=== PATIENT | female | born 1955 | race Caucasian/White ===

== ENCOUNTER → 2016-07-31 | Outpatient (CLI) | payer OTHER ==
[~2016-07-31] MED LIST: BENA25TA4 PO; BENZ1TA PO; COGENTIN PO; COZA50TA PO; FLUO10CA8 PO; FLUP25TA PO; FLUP25VL IM; FLUP5TA PO; FURO40TA2 PO; GABA600T PO; GABA800T PO; LOSA50TA20 PO; LOSA50TA21 PO; METO25TAB PO; NEUR600T PO; NEUR800T PO; PROLIXIN PO; TRAZ50TA4 PO
[2016-07-31 10:46] LABS: ALBUMIN 3.5 GM/DL (3.2-5.2); ALBUMIN/GLOBULIN RATIO 1.09 (1.00-1.93); BILIRUBIN,TOTAL 0.3 MG/DL (0.2-1.0); CALCIUM LEVEL 8.4 MG/DL (8.8-10.2); CREATININE FOR GFR 1.03 MG/DL (0.55-1.02); GLOMERULAR FILTRATION RATE 57.6 (>45); POTASSIUM SERUM 4.2 MEQ/L (3.5-5.1); TOTAL PROTEIN 6.7 GM/DL (6.4-8.2)
== END ==
LOC: M LAB 09:44
PROVIDERS: ATTEND Nurse Practitioner Family
DX: E55.9 Vitamin D deficiency, unspecified (principal); I10 Essential (primary) hypertension; Z13.220 Encounter for screening for lipoid disorders

== ENCOUNTER → 2016-09-16 | Outpatient (REF) | payer OTHER ==
[~2016-09-16] MED LIST changes: +BENZ-52 PO; -BENZ1TA PO; -LOSA50TA21 PO; +LOSA50TA5 PO; +TRAZ50TA11 PO; -TRAZ50TA4 PO
== END ==
LOC: M LAB REF 11:38
PROVIDERS: ATTEND Nurse Practitioner Family
DX: R19.7 Diarrhea, unspecified (principal)

== ENCOUNTER → 2017-03-19 | Outpatient (REF) | payer OTHER ==
[2017-03-19 20:35] LABS: ALBUMIN 3.6 GM/DL (3.2-5.2); ALBUMIN/GLOBULIN RATIO 1.16 (1.00-1.93); ALKALINE PHOSPHATASE 100 U/L (45-117); ALT/SGPT 21 U/L (12-78); ANION GAP 6 MEQ/L (8-16); AST/SGOT 19 U/L (7-37); BILIRUBIN,TOTAL 0.2 MG/DL (0.2-1.0); BLOOD UREA NITROGEN 15 MG/DL (7-18); CALCIUM LEVEL 8.6 MG/DL (8.8-10.2); CARBON DIOXIDE LEVEL 30 MEQ/L (21-32); CHLORIDE LEVEL 104 MEQ/L (98-107); CREATININE FOR GFR 1.01 MG/DL (0.55-1.02); GLOMERULAR FILTRATION RATE 58.9 (>45); GLUCOSE, FASTING 126 MG/DL (80-110); POTASSIUM SERUM 3.9 MEQ/L (3.5-5.1); SODIUM LEVEL 140 MEQ/L (136-145); TOTAL PROTEIN 6.7 GM/DL (6.4-8.2)
[2017-03-19 20:55] LABS: TOTAL 25(OH) VITAMIN D 38.9 NG/ML (30.0-100.0)
== END ==
LOC: M LAB REF 18:46
DX: E66.09 Other obesity due to excess calories (principal); Z72.0 Tobacco use; E55.9 Vitamin D deficiency, unspecified; F31.9 Bipolar disorder, unspecified; I10 Essential (primary) hypertension

== ENCOUNTER → 2017-04-23 | Outpatient (CLI) | payer OTHER | LOC: M RAD 08:44 | DX: Z12.31 Encounter for screening mammogram for malignant neoplasm of breast (principal) | CPT/HCPCS: 77067 ==

== ENCOUNTER → 2017-07-13 | Outpatient (REF) | payer OTHER ==
[2017-07-13 13:15] LABS: HEMATOCRIT 40.3 % (36.0-47.0); HEMOGLOBIN 13.5 g/dl (12.0-15.5); MEAN CORPUSCULAR HEMOGLOBIN 31.5 pg (27.0-33.0); MEAN CORPUSCULAR HGB CONC 33.5 g/dl (32.0-36.5); MEAN CORPUSCULAR VOLUME 94.2 fl (80.0-96.0); PLATELET COUNT, AUTOMATED 279 10^3/uL (150-450); RED BLOOD COUNT 4.28 10^6/uL (4.00-5.40); RED CELL DISTRIBUTION WIDTH 14.3 % (11.5-14.5); WHITE BLOOD COUNT 8.3 10^3/uL (4.0-10.0)
[2017-07-13 13:50] LABS: CHOLESTEROL LEVEL 124 MG/DL (<200); CHOLESTEROL RISK RATIO 2.883 (<5); HDL CHOLESTEROL 43 MG/DL (>40); LDL CHOLESTEROL 61.4 MG/DL (<100); NON-HDL-C 81 MG/DL; THYROID STIMULATING HORMONE 0.923 uIU/ML (0.358-3.740); TRIGLYCERIDES LEVEL 98 MG/DL (<150)
[2017-07-13 14:46] LABS: ESTIMATED AVERAGE GLUCOSE 120 MG/DL (60-110); HEMOGLOBIN A1c 5.8 %
== END ==
LOC: M LAB REF 12:07
DX: Z51.81 Encounter for therapeutic drug level monitoring (principal); Z79.899 Other long term (current) drug therapy

== ENCOUNTER → 2017-07-13 | Outpatient (REF) | payer OTHER ==
[2017-07-13 13:50] LABS: CHOLESTEROL LEVEL 131 MG/DL (<200); CHOLESTEROL RISK RATIO 2.847 (<5); HDL CHOLESTEROL 46 MG/DL (>40); LDL CHOLESTEROL 65.8 MG/DL (<100); NON-HDL-C 85 MG/DL; TRIGLYCERIDES LEVEL 96 MG/DL (<150)
[2017-07-13 20:17] LABS: ESTIMATED AVERAGE GLUCOSE 120 MG/DL (60-110); HEMOGLOBIN A1c 5.8 %
== END ==
LOC: M LAB REF 12:05
DX: I10 Essential (primary) hypertension (principal)

== ENCOUNTER → 2017-12-01 | Outpatient (REF) | payer OTHER, MEDICAID ==
[2017-12-01 15:10] LABS: ALBUMIN 3.2 GM/DL (3.2-5.2); ALBUMIN/GLOBULIN RATIO 0.94 (1.00-1.93); ALKALINE PHOSPHATASE 81 U/L (45-117); ALT/SGPT 18 U/L (12-78); ANION GAP 10 MEQ/L (8-16); AST/SGOT 19 U/L (7-37); BILIRUBIN,TOTAL 0.2 MG/DL (0.2-1.0); BLOOD UREA NITROGEN 19 MG/DL (7-18); CALCIUM LEVEL 8.8 MG/DL (8.8-10.2); CARBON DIOXIDE LEVEL 28 MEQ/L (21-32); CHLORIDE LEVEL 101 MEQ/L (98-107); CREATININE FOR GFR 1.16 MG/DL (0.55-1.30); GLOMERULAR FILTRATION RATE 50.1 (>45); GLUCOSE, FASTING 142 MG/DL (70-100); SODIUM LEVEL 139 MEQ/L (136-145); TOTAL PROTEIN 6.6 GM/DL (6.4-8.2)
== END ==
LOC: M LAB REF 14:02
DX: I10 Essential (primary) hypertension (principal)

== ENCOUNTER → 2018-07-02 | Outpatient (CLI) | payer MEDICAID, OTHER ==
[~2018-07-02] MED LIST changes: -GABA600T PO; +GABA600T4 PO; -GABA800T PO; +GABA800T4 PO; -LOSA50TA20 PO; +LOSA50TA88 PO; +METO-346 PO; -METO25TAB PO; +TRAZ-160 PO; -TRAZ50TA11 PO
--- NOTE | 2018-07-02 09:27 | REPMRS ---
Patient History The patient states she has not had a clinical breast exam in over a year. Patient is postmenopausal and is nulliparous. No known family history of cancer. 3D TOMOSYNTHESIS WAS PERFORMED. Digital Mammo Screening Bilat: July 02, 2018 - Exam #: [id number] Bilateral CC and MLO view(s) were taken. Technologist: Genesis Snider, Technologist Prior study comparison: April 23, 2017, bilateral digital mammo screening bilat performed at [facility]. September 21, 2014, bilateral digital mammo screening bilat performed at [facility]. FINDINGS: The breast tissue is heterogeneously dense. This may lower the sensitivity of mammography. There has been no change in the appearance of the mammogram from the prior studies. There is a moderate amount of residual fibroglandular tissue which is fairly symmetric. There is no interval development of dominant mass, areas of architectural distortion, or clustered microcalcification typical of malignancy. Assessment: BI-RADS/ACR category 1 mammogram. Negative Mammogram. Recommendation Routine screening mammogram in 1 year (for women over age 40). This mammogram was interpreted with the aid of an FDA-approved computer-aided dectection system. Electronically Signed By: Jacinto Thomas MD 07/02/18 0926
== END ==
LOC: M RAD 07:41
PROVIDERS: ATTEND Nurse Practitioner Adult Health
DX: Z12.31 Encounter for screening mammogram for malignant neoplasm of breast (principal); Z78.0 Asymptomatic menopausal state

== ENCOUNTER → 2018-08-23 | Outpatient (REF) | payer MEDICAID ==
[~2018-08-23] MED LIST changes: -TRAZ-160 PO; +TRAZ-252 PO
[2018-08-23 17:06] LABS: ALBUMIN 3.2 GM/DL (3.2-5.2); BILIRUBIN,TOTAL 0.2 MG/DL (0.2-1.0); CALCIUM LEVEL 8.6 MG/DL (8.8-10.2); CHOLESTEROL RISK RATIO 3.214 (<5); CREATININE FOR GFR 1.07 MG/DL (0.55-1.30); GLOMERULAR FILTRATION RATE 54.8 (>45); POTASSIUM SERUM 3.8 MEQ/L (3.5-5.1); TOTAL PROTEIN 7.2 GM/DL (6.4-8.2)
[2018-08-23 17:42] LABS: HEMOGLOBIN A1c 6.2 %
== END ==
LOC: M LAB REF 16:26
PROVIDERS: ATTEND Nurse Practitioner Adult Health
DX: I10 Essential (primary) hypertension (principal)

== ENCOUNTER → 2018-12-07 | Outpatient (REF) | payer MEDICAID | LOC: M LAB REF 16:54 | PROVIDERS: ATTEND Nurse Practitioner Adult Health | DX: R73.03 Prediabetes (principal) ==

== ENCOUNTER 2018-12-24 11:39 | Inpatient (IN) | payer MEDICAID ==
[~2018-12-24] VITALS: Ht 154.9 cm; Wt 80.4 kg
[2018-12-24] MEDS ORDERED: METO1TAB33 PO (12:11)
[2018-12-24] MEDS ORDERED: LOSA100T50 PO (12:11)
[2018-12-24] MEDS ORDERED: FLUO20CA19 PO (12:11)
[2018-12-24] MEDS ORDERED: IPRATROPIUM 0.5MG/ALBUTEROL 2.5MG INH SOL UD 3ML (DUONEB)(J7620) NEB ONE (12:30)
[2018-12-24] MEDS ORDERED: dexameTHASONE 20 MG/5 ML VIAL (J1100) IV ONE (12:45)
[2018-12-24] MEDS ORDERED: LEVALBUTEROL 1.25 MG/0.5 ML CONCENTRATE NEB INH ONE (12:45)
[2018-12-24] MEDS ORDERED: NS 500 ML IV ONE (12:45)
[2018-12-24 13:29] LABS: BASO % 0.2 % (0.0-1.0); EOS # 0.1 10^3/uL (0.0-0.5); EOS % 0.5 % (0.0-3.0); HEMATOCRIT 37.2 % (36.0-47.0); HEMOGLOBIN 11.3 g/dl (12.0-15.5); LYMPH # 1.8 10^3/uL (1.5-5.0); LYMPH % 13.3 % (24.0-44.0); MEAN CORPUSCULAR HEMOGLOBIN 26.5 pg (27.0-33.0); MEAN CORPUSCULAR HGB CONC 30.4 g/dl (32.0-36.5); MEAN CORPUSCULAR VOLUME 87.1 fl (80.0-96.0); MONO # 1.4 10^3/uL (0.0-0.8); MONO % 10.5 % (0.0-5.0); PLATELET COUNT, AUTOMATED 306 10^3/uL (150-450); RED BLOOD COUNT 4.27 10^6/uL (4.00-5.40); WHITE BLOOD COUNT 13.3 10^3/uL (4.0-10.0)
[2018-12-24 14:02] LABS: BLOOD UREA NITROGEN 18 MG/DL (7-18); CALCIUM LEVEL 8.9 MG/DL (8.8-10.2); CARBON DIOXIDE LEVEL 31 MEQ/L (21-32); CHLORIDE LEVEL 104 MEQ/L (98-107); CK-MB VALUE MASS 1.8 NG/ML (<3.6); CPK CREATINE PHOSPHOKINASE 300 U/L (26-192); CREATININE FOR GFR 1.02 MG/DL (0.55-1.30); GLOMERULAR FILTRATION RATE 57.9 (>45); GLUCOSE, FASTING 91 MG/DL (70-100); NT-PRO BNP 121 PG/ML (<125); POTASSIUM SERUM 3.6 MEQ/L (3.5-5.1); SODIUM LEVEL 139 MEQ/L (136-145); TROPONIN I < 0.02 NG/ML (< 0.10)
--- NOTE | 2018-12-24 14:27 | REP ---
REASON: Cough and dyspnea. PRIORS: None. The technique utilized in obtaining the radiograph has magnified the cardiac silhouette and accentuated the interstitial markings. The lung varela are clear with the exception of a dense nodule on the right lower lobe measuring 7 mm probably a calcified granuloma. The pleural angles are sharp and the heart is not enlarged. The osseous structures are within normal limits. IMPRESSION: Probable right lower lobe calcified granuloma. No other abnormalities are noted. Electronically Signed by Nino Richardson DO 12/24/2018 04:18 P
[2018-12-24 14:54] LABS: INFLUENZA A AMPLIFICATION NEGATIVE (NEGATIVE); INFLUENZA B AMPLIFICATION NEGATIVE (NEGATIVE)
[2018-12-24] MEDS ORDERED: LEVALBUTEROL 1.25 MG/0.5 ML CONCENTRATE NEB NEB PRN (16:30)
[2018-12-24] MEDS ORDERED: ISOVUE-370 76% 100ML VIAL (Q9967) As Ordered ONE (16:33)
[2018-12-24] MEDS ORDERED: LATA0.0015 OU (16:42)
[2018-12-24] MEDS ORDERED: FLUP5TA PO (16:42)
[2018-12-24] MEDS ORDERED: VENTAER INH (16:42)
[2018-12-24] MEDS ORDERED: DOXYCYCLINE HYCLATE 100 MG in D5W MINI-BAG PLUS 100 ML IV ONE (17:00)
--- NOTE | 2018-12-24 17:32 | HPE ---
DATE OF ADMISSION: 12/24/2018 PRIMARY CARE PROVIDER: Jessi Tiwari NP CHIEF COMPLAINT: Shortness of breath and cough. HISTORY OF PRESENT ILLNESS: 63-year-old female with a history of chronic obstructive pulmonary disease (COPD), actively smoking cigarettes, presented to the emergency room with a 3 to 4 day history of increasing shortness of breath, cough productive of yellow sputum and feelings of subjective fevers at home. Denies any chills, nausea, vomiting, headache, changes in vision, or diarrhea. She denies any sore throat and has been exposed to a friend who has a cold. Despite inhalers at home being used every 4 hours, the patient has had no relief. She then presented to the emergency room and was found to have significant wheezing and dyspnea on exertion. The patient said that she went to urgent care and was told to come to the emergency room due to significant dyspnea on exertion, walking about 10 to 15 feet and feeling out of breath. In the ER, she was found to have uncontrolled blood pressure, 185/79. She was given intravenous Decadron, Xopenex, and was given a bolus of normal saline. Influenza A and B were sent. Sputum culture is pending. Respiratory panel is pending. Chest x- ray shows an old granuloma. Hospitalist was called to admit for COPD exacerbation. PAST MEDICAL HISTORY: 1. Cervical dysplasia. 2. Glaucoma. 3. Hypertension. 4. Schizoaffective disorder. 5. Right breast calcification, which is benign. 6. Pulmonary calcified granuloma. PAST SURGICAL HISTORY: 1. Left salpingectomy. 2. Breast cyst removal. ALLERGIES: ARIPIPRAZOLE, CARBAMAZEPINE, CHLORPROMAZINE, DIAZEPAM, LITHIUM, OLANZAPINE, QUETIAPINE. HOME MEDICATIONS: - albuterol two puffs every 4 hours as needed - fluoxetine 20 mg daily - fluphenazine 5 mg twice a day - Lasix 40 mg daily - gabapentin 800 mg three times a day - losartan 100 mg daily - metoprolol 100 mg daily - latanoprost 7.5 mL one drop OU at night SOCIAL HISTORY: The patient lives with her boyfriend. She still smokes cigarettes, previously smoked three packs a day since the age of 7, currently smoking three to four cigarettes a day. The patient has had a sick contact. Denies alcohol or recreational drug use. FAMILY HISTORY: Mother at age 88 due to CVA. The patient has brothers and sisters all alive and well, no medical problems. Father at age 68 from lung cancer. REVIEW OF SYSTEMS: As per history of present illness. 12-point system otherwise negative. VITAL SIGNS: Temperature 98.3, pulse 130, sinus, respiratory rate 38, blood pressure 185/79, 90% on room air. GENERAL: The patient is awake, alert and oriented times three. Answering questions appropriately. The patient has four to five word conversational dyspnea. She has no icterus. No jaundice. No pallor. Mild respiratory distress. No tracheal deviation. No jugular venous distention (JVD), thyromegaly or cervical lymphadenopathy. LUNGS: Diminished breath sounds. Bilateral wheezing. HEART: S1, S2. Sinus tachycardia. No murmurs, rubs or gallops. ABDOMEN: Soft, nontender, nondistended. Positive bowel sounds times four quadrants. EXTREMITIES: No cyanosis, clubbing or pitting edema. LABORATORY DATA: White count 13.3, hemoglobin 11, hematocrit 37, platelet count 306. Sodium 139, potassium 3.6, chloride 104, bicarbonate 31, BUN 18, creatinine 1.0, glucose of 91, total CK 300, MB fraction 1.8, troponin less than 0.02, BNP 121. Sputum culture from 12/24/2018 pending. ASSESSMENT AND PLAN: 63-year-old active smoker who presents with chronic obstructive pulmonary disease (COPD) exacerbation. The patient will be admitted as an inpatient for two midnights for the following issues: 1. COPD exacerbation. On Solu-Medrol, nebulizer treatments. Supplemental oxygen if needed if oxygen saturation is less than 88%. Doxycycline 100 mg twice a day. Sputum culture has been sent. Chest x-ray has calcified granuloma without infiltrate or consolidation. Respiratory panel is pending. 2. Uncontrolled hypertension. She may be resumed on her home dose of losartan and metoprolol. Titrate if needed. 3. History of bipolar disorder. May resume all psychiatric medications. 4. Glaucoma. May resume Latanoprost OU at night. 5. Deep vein thrombosis (DVT) prophylaxis with Lovenox subcutaneously. MTDD
[2018-12-24 18:30] VITALS: O2SAT 85
[2018-12-24] MEDS: LEVALBUTEROL 1.25 MG/0.5 ML CONCENTRATE NEB NEB SCH ×2 (19:42→23:20)
--- NOTE | 2018-12-24 19:47 | REP ---
CT pulmonary angiogram: With IV contrast. History: Shortness of breath. Rule out pulmonary embolus. Repeat dictation. Preliminary report is provided at the time of the examination by [facility]. Comparison studies: Comparison is made with today's portable chest x-ray. Contrast dose: 75 mL of Isovue [address] technique: Helical scanning is acquired and overlapping 1.5 mm and contiguous 3 mm axial images are reformatted. In addition, maximum intensity projection and multiplanar re-formation images are generated in sagittal and coronal imaging projections. CT pulmonary angiographic findings: There is good opacification of the pulmonary arterial tree. No vessel cutoff or filling defect is seen. There is no CT evidence of pulmonary embolism. Thoracic aorta enhances homogeneously. There is no evidence of aneurysm or dissection. There are scattered pulmonary parenchymal granulomatous calcifications and there are granulomatous lymph node residuals in the hilum and mediastinal region. There is a subtle tree in bud type of peribronchovascular infiltrate in the right middle lobe which may reflect early pneumonia. Less prominent similar pattern is seen in the left upper lobe. These changes may be inflammatory. There are some scattered micronodules in the right lower lobe. No adrenal lesion is seen. No bony destructive lesion is observed. Impression: No CT evidence of pulmonary embolus. Old granulomatous changes. Early infiltrates suggested in the right middle lobe, left upper lobe and possibly in the right lower lobe. Electronically Signed by Guanaco Shepherd MD 12/24/2018 07:54 P
--- NOTE | 2018-12-24 20:11 | ECGEPIP ---
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
[2018-12-24] MEDS ORDERED: LOSARTAN 50 MG TAB PO ONE (21:00)
[2018-12-24] MEDS ORDERED: DOXYCYCLINE HYCLATE 100 MG in D5W MINI-BAG PLUS 100 ML IV SCH (22:00)
[2018-12-24] MEDS: methylPREDNISolone INJ 40 MG/1 ML VIAL (J2920) IV SCH (22:45)
[2018-12-24] MEDS: GABAPENTIN 400 MG CAP PO SCH (22:45)
[2018-12-25] MEDS: LATANOPROST 0.005% OPHTH SOLN 2.5 ML OU SCH ×2 (00:14→22:51)
[2018-12-25] MEDS: LEVALBUTEROL 1.25 MG/0.5 ML CONCENTRATE NEB NEB SCH ×4 (03:37→19:24)
[2018-12-25 06:26] LABS: HEMATOCRIT 36.9 % (36.0-47.0); HEMOGLOBIN 11.4 g/dl (12.0-15.5); MEAN CORPUSCULAR HEMOGLOBIN 26.4 pg (27.0-33.0); MEAN CORPUSCULAR HGB CONC 30.9 g/dl (32.0-36.5); MEAN CORPUSCULAR VOLUME 85.4 fl (80.0-96.0); PLATELET COUNT, AUTOMATED 344 10^3/uL (150-450); RED BLOOD COUNT 4.32 10^6/uL (4.00-5.40); WHITE BLOOD COUNT 16.2 10^3/uL (4.0-10.0)
[2018-12-25] MEDS: methylPREDNISolone INJ 40 MG/1 ML VIAL (J2920) IV SCH ×3 (06:26→21:33)
[2018-12-25] MEDS: DOXYCYCLINE HYCLATE 100 MG in D5W MINI-BAG PLUS 100 ML IV SCH ×2 (06:26→18:51)
[2018-12-25 06:52] LABS: BLOOD UREA NITROGEN 16 MG/DL (7-18); CALCIUM LEVEL 8.9 MG/DL (8.8-10.2); CARBON DIOXIDE LEVEL 30 MEQ/L (21-32); CHLORIDE LEVEL 105 MEQ/L (98-107); CREATININE FOR GFR 0.87 MG/DL (0.55-1.30); GLOMERULAR FILTRATION RATE > 60.0 (>45); GLUCOSE, FASTING 182 MG/DL (70-100); POTASSIUM SERUM 3.5 MEQ/L (3.5-5.1); SODIUM LEVEL 139 MEQ/L (136-145)
[2018-12-25] MEDS: FLUoxetine 20 MG CAP PO SCH (08:21)
[2018-12-25] MEDS: METOPROLOL SUCC (TopROL XL) 100MG *XL* TAB PO SCH (08:21)
[2018-12-25] MEDS: LOSARTAN 50 MG TAB PO SCH (08:22)
[2018-12-25] MEDS: FUROSEMIDE 40 MG TAB PO SCH (08:22)
[2018-12-25] MEDS: GABAPENTIN 400 MG CAP PO SCH ×3 (08:22→21:33)
[2018-12-25] MEDS: cefTRIAXone SOD 2 GM in D5W MINI-BAG PLUS 50 ML IV SCH (12:29)
--- NOTE | 2018-12-25 15:21 | IPN ---
DATE: 12/25/2018 Patient still complains of shortness of breath with a dry cough, still with wheezing and some palpitations. She was hypothermic, 96.[address] chest showed early infiltrates in the right middle, left upper lobe and right lower lobe. Sputum culture is pending. Patient does have positive rhinovirus and enterovirus. No other issues per nursing overnight. Temperature 96.3, pulse 105, sinus tachycardia, respiratory rate 15, blood pressure 163/75, 92% on 3 liters nasal cannula. GENERAL: Patient is awake, alert, oriented times three. No use of respiratory accessory muscles. No tripod positioning. Patient does not have any pursed lips. Able to speak in full sentences. No conversational dyspnea. LUNGS: Diminished with bilateral wheezing. Air entry easy and equal bilaterally. Some fine crackles at bilateral bases and the upper lobe. ABDOMEN: Soft, nontender, nondistended. Normoactive bowel sounds. No abdominal bruit. EXTREMITIES: No cyanosis, clubbing or any pitting edema. SKIN: Warm to touch, dry and pink in color. Well-perfused. LABORATORY DATA: White count 16, hemoglobin 11, hematocrit 36, platelet count 344. Sodium 139, potassium 3.5, chloride 105, bicarbonate 30, BUN 16, creatinine 0.87, glucose of 182. Total CK 300. MB fraction 1.8. Troponin less than 0.02. BNP of 121. MICROBIOLOGY: Human rhinovirus and enterovirus. Sputum culture is pending. IMAGING STUDIES: CT chest shows right middle, right lower lobe and left upper lobe infiltrates. ASSESSMENT AND PLAN: This is a 63-year-old female with history of chronic obstructive pulmonary disease (COPD), actively smoking, presented to the emergency room with cough, shortness of breath, was found to have bilateral pneumonia. Current issues are as follows: 1. Chronic obstructive pulmonary disease (COPD) exacerbation. Intravenous (IV) Solu-Medrol, nebulizer. She had been put on doxycycline yesterday, but will add ceftriaxone today due to findings of bilateral infiltrates on CT chest. Sputum culture is still pending. She does have enterovirus as the inciting event and rhinovirus most likely. She is educated about strict handwashing. 2. Hypertension. She is resumed on her home dose of Losartan and metoprolol. 3. Bipolar disorder. Resumed on psychiatric medications. 4. Glaucoma. Latanoprost both eyes. 5. Community-acquired pneumonia. Currently on ceftriaxone, day #1. Day #2 of doxycycline for atypical coverage.
[2018-12-25 22:00] VITALS: BP 136/79
[2018-12-26] MEDS: LEVALBUTEROL 1.25 MG/0.5 ML CONCENTRATE NEB NEB SCH ×6 (00:04→23:57)
[2018-12-26] MEDS: methylPREDNISolone INJ 40 MG/1 ML VIAL (J2920) IV SCH ×3 (05:13→22:06)
[2018-12-26] MEDS: DOXYCYCLINE HYCLATE 100 MG in D5W MINI-BAG PLUS 100 ML IV SCH ×2 (05:13→17:40)
[2018-12-26 06:00] VITALS: BP 135/86
[2018-12-26 06:19] LABS: HEMATOCRIT 35.6 % (36.0-47.0); HEMOGLOBIN 10.7 g/dl (12.0-15.5); MEAN CORPUSCULAR HEMOGLOBIN 25.9 pg (27.0-33.0); MEAN CORPUSCULAR HGB CONC 30.1 g/dl (32.0-36.5); MEAN CORPUSCULAR VOLUME 86.2 fl (80.0-96.0); PLATELET COUNT, AUTOMATED 368 10^3/uL (150-450); RED BLOOD COUNT 4.13 10^6/uL (4.00-5.40); WHITE BLOOD COUNT 21.5 10^3/uL (4.0-10.0)
[2018-12-26 06:50] LABS: BLOOD UREA NITROGEN 26 MG/DL (7-18); CALCIUM LEVEL 8.9 MG/DL (8.8-10.2); CARBON DIOXIDE LEVEL 29 MEQ/L (21-32); CHLORIDE LEVEL 103 MEQ/L (98-107); CREATININE FOR GFR 0.98 MG/DL (0.55-1.30); GLOMERULAR FILTRATION RATE > 60.0 (>45); GLUCOSE, FASTING 184 MG/DL (70-100); POTASSIUM SERUM 4.5 MEQ/L (3.5-5.1); SODIUM LEVEL 137 MEQ/L (136-145)
[2018-12-26] MEDS: GABAPENTIN 400 MG CAP PO SCH ×3 (07:35→20:42)
[2018-12-26] MEDS: METOPROLOL SUCC (TopROL XL) 100MG *XL* TAB PO SCH (07:36)
[2018-12-26] MEDS: LOSARTAN 50 MG TAB PO SCH (07:36)
[2018-12-26] MEDS: FLUoxetine 20 MG CAP PO SCH (07:37)
[2018-12-26] MEDS: FUROSEMIDE 40 MG TAB PO SCH (07:37)
[2018-12-26] MEDS ORDERED: PREVNAR 13 VACCINE SYRINGE (CPT CODE:90670) IM ONE (09:00)
[2018-12-26] MEDS ORDERED: FLUBLOK(EGG FREE)(QUAD)INFLUENZA VACC 0.5ML SYRINGE (90682)18YRS&OLDER IM ONE (09:00)
[2018-12-26] MEDS ORDERED: guaiFENesin DM LIQ 10ML UD PO PRN (11:00)
[2018-12-26] MEDS: cefTRIAXone SOD 2 GM in D5W MINI-BAG PLUS 50 ML IV SCH (12:16)
--- NOTE | 2018-12-26 14:51 | IPN ---
DATE: 12/26/2018 Patient had a coughing fit with thick, yellow sputum coming up. Sputum culture grew out Streptococcus pneumonia. Respiratory panel positive for rhinovirus and enterovirus. Breathing has improved when patient walks around. No paroxysmal nocturnal dyspnea (PND) or orthopnea. Shortness of breath is much, much better according to the patient. No fever or chills overnight. Temperature 98.1, pulse 91, respiratory rate 18, blood pressure 135/86, 92% on 3 liters nasal cannula. GENERAL: Patient is awake, alert, oriented times three, answering questions appropriately. Anicteric sclerae. No jaundice. No use of respiratory accessory muscles. No conversation dyspnea. LUNGS: Diminished with faint expiratory wheezing. Right middle lobe crackles. Left upper lobe crackles. HEART: S1, S2. Sinus rhythm. ABDOMEN: Soft, nontender, nondistended. EXTREMITIES: No cyanosis, clubbing or any pitting edema. LABORATORY DATA: Imaging studies and microbiology have been reviewed. ASSESSMENT AND PLAN: A 63-year-old female presented with shortness of breath, actively smoking, presented with cough, shortness of breath, found to have bilateral pneumonia. Current issues: 1. Streptococcus pneumonia, community-acquired. Currently on ceftriaxone and doxycycline. Discontinue doxycycline if no other organisms are found in the final sputum culture results. Currently on supplemental oxygen. 2. Acute hypoxic respiratory failure secondary to pneumonia as well as chronic obstructive pulmonary disease (COPD). Keep saturations 88-92%. 3. Chronic obstructive pulmonary disease (COPD) exacerbation. Intravenous (IV) Solu-Medrol, nebulizer. Antibiotics for pneumonia and supplemental oxygen. 4. Enterovirus, rhinovirus viral infection. On isolation. 5. Hypertension. Resume losartan, metoprolol. 6. Bipolar disorder. Resume psychiatric medications. 7. Glaucoma. Resume the latanoprost.
[2018-12-26 16:00] VITALS: BP 146/70
[2018-12-26 20:20] VITALS: BP 146/64
[2018-12-26] MEDS: LATANOPROST 0.005% OPHTH SOLN 2.5 ML OU SCH (22:49)
[2018-12-27] VITALS: BP 154/69
[2018-12-27 04:20] VITALS: BP 150/73
[2018-12-27] MEDS: LEVALBUTEROL 1.25 MG/0.5 ML CONCENTRATE NEB NEB SCH ×6 (04:35→23:36)
[2018-12-27] MEDS: methylPREDNISolone INJ 40 MG/1 ML VIAL (J2920) IV SCH ×3 (05:56→22:16)
[2018-12-27] MEDS: DOXYCYCLINE HYCLATE 100 MG in D5W MINI-BAG PLUS 100 ML IV SCH ×2 (05:57→18:00)
[2018-12-27 06:59] LABS: HEMATOCRIT 35.8 % (36.0-47.0); HEMOGLOBIN 10.7 g/dl (12.0-15.5); MEAN CORPUSCULAR HEMOGLOBIN 25.5 pg (27.0-33.0); MEAN CORPUSCULAR HGB CONC 29.9 g/dl (32.0-36.5); MEAN CORPUSCULAR VOLUME 85.4 fl (80.0-96.0); PLATELET COUNT, AUTOMATED 398 10^3/uL (150-450); RED BLOOD COUNT 4.19 10^6/uL (4.00-5.40)
[2018-12-27 07:18] LABS: BLOOD UREA NITROGEN 35 MG/DL (7-18); CALCIUM LEVEL 8.8 MG/DL (8.8-10.2); CARBON DIOXIDE LEVEL 29 MEQ/L (21-32); CHLORIDE LEVEL 100 MEQ/L (98-107); CREATININE FOR GFR 0.93 MG/DL (0.55-1.30); GLOMERULAR FILTRATION RATE > 60.0 (>45); GLUCOSE, FASTING 155 MG/DL (70-100); POTASSIUM SERUM 3.9 MEQ/L (3.5-5.1); SODIUM LEVEL 133 MEQ/L (136-145)
[2018-12-27] MEDS: METOPROLOL SUCC (TopROL XL) 100MG *XL* TAB PO SCH (08:13)
[2018-12-27] MEDS: GABAPENTIN 400 MG CAP PO SCH ×3 (08:13→22:17)
[2018-12-27] MEDS: FLUoxetine 20 MG CAP PO SCH (08:13)
[2018-12-27] MEDS: LOSARTAN 50 MG TAB PO SCH (08:14)
[2018-12-27] MEDS: FUROSEMIDE 40 MG TAB PO SCH (08:14)
[2018-12-27 08:23] VITALS: BP 154/66
--- NOTE | 2018-12-27 12:03 | IPNPDOC ---
Text Note Date of Service The patient was seen on 12/27/18. NOTE Patient was seen and examined this morning. No overnight events Physical examination GENERAL: Patient is awake, alert, oriented times three, answering questions appropriately. Anicteric sclerae. No jaundice. No use of respiratory accessory muscles. No conversation dyspnea. LUNGS: Diminished with faint expiratory wheezing. Right middle lobe crackles. Left upper lobe crackles. HEART: S1, S2. Sinus rhythm. ABDOMEN: Soft, nontender, nondistended. EXTREMITIES: No cyanosis, clubbing or any pitting edema. LABORATORY DATA: Imaging studies and microbiology have been reviewed. ASSESSMENT AND PLAN: A 63-year-old female presented with shortness of breath, actively smoking, presented with cough, shortness of breath, found to have bilateral pneumonia. Current issues: 1. Streptococcus pneumonia, community-acquired. Currently on ceftriaxone and doxycycline. Discontinue doxycycline if no other organisms are found in the final sputum culture results. Currently on supplemental oxygen. 2. Acute hypoxic respiratory failure secondary to pneumonia as well as chronic obstructive pulmonary disease (COPD). Keep saturations 88-92%. 3. Chronic obstructive pulmonary disease (COPD) exacerbation. Intravenous (IV) Solu-Medrol. de escalated to 40 3 times a day, nebulizer. Antibiotics for pneumonia and supplemental oxygen. 4. Enterovirus, rhinovirus viral infection. On isolation. 5. Hypertension. Resume losartan, metoprolol. 6. Bipolar disorder. Resume psychiatric medications. 7. Glaucoma. Resume the latanoprost. Disposition likely home in the next 24 hours VS,Braeden, I+O VS, Braeden, I+O Laboratory Tests 12/27/18 06:20 Vital Signs Date Time Temp Pulse Resp B/P (MAP) Pulse Ox O2 Delivery O2 Flow Rate FiO2 12/27/18 09:57 92 Nasal Cannula 1.0 12/27/18 08:23 99.0 72 20 154/66 (95) I&O- Last 24 Hours up to 6 AM 12/27/18 06:00 Intake Total 1448 ml Output Total 300 ml Balance 1148 ml DEE QUAN MD Dec 27, 2018 12:03
[2018-12-27] MEDS: cefTRIAXone SOD 2 GM in D5W MINI-BAG PLUS 50 ML IV SCH (12:22)
[2018-12-27 16:13] VITALS: BP 154/67
[2018-12-27] MEDS: LATANOPROST 0.005% OPHTH SOLN 2.5 ML OU SCH (22:16)
[2018-12-28] VITALS: BP 125/58
[2018-12-28] MEDS ORDERED: ACETAMINOPHEN TAB 650MG DOSE (2X325MG) PO ONE (01:45)
[2018-12-28] MEDS: LEVALBUTEROL 1.25 MG/0.5 ML CONCENTRATE NEB NEB SCH ×4 (03:32→20:46)
[2018-12-28] MEDS: methylPREDNISolone INJ 40 MG/1 ML VIAL (J2920) IV SCH ×3 (05:41→23:53)
[2018-12-28] MEDS: DOXYCYCLINE HYCLATE 100 MG in D5W MINI-BAG PLUS 100 ML IV SCH ×3 (05:42→17:12)
[2018-12-28 06:48] LABS: HEMATOCRIT 35.2 % (36.0-47.0); HEMOGLOBIN 10.9 g/dl (12.0-15.5); MEAN CORPUSCULAR HEMOGLOBIN 25.6 pg (27.0-33.0); MEAN CORPUSCULAR VOLUME 82.6 fl (80.0-96.0); PLATELET COUNT, AUTOMATED 401 10^3/uL (150-450); RED BLOOD COUNT 4.26 10^6/uL (4.00-5.40); WHITE BLOOD COUNT 14.5 10^3/uL (4.0-10.0)
[2018-12-28 07:19] LABS: BLOOD UREA NITROGEN 26 MG/DL (7-18); CALCIUM LEVEL 8.6 MG/DL (8.8-10.2); CARBON DIOXIDE LEVEL 29 MEQ/L (21-32); CHLORIDE LEVEL 98 MEQ/L (98-107); GLOMERULAR FILTRATION RATE > 60.0 (>45); GLUCOSE, FASTING 192 MG/DL (70-100); POTASSIUM SERUM 3.8 MEQ/L (3.5-5.1); SODIUM LEVEL 133 MEQ/L (136-145)
[2018-12-28 08:03] VITALS: BP 190/92
[2018-12-28] MEDS: METOPROLOL SUCC (TopROL XL) 100MG *XL* TAB PO SCH (08:13)
[2018-12-28] MEDS: GABAPENTIN 400 MG CAP PO SCH ×3 (08:13→22:33)
[2018-12-28] MEDS: LOSARTAN 50 MG TAB PO SCH (08:13)
[2018-12-28] MEDS: FLUoxetine 20 MG CAP PO SCH (08:14)
[2018-12-28] MEDS: FUROSEMIDE 40 MG TAB PO SCH (08:14)
[2018-12-28 09:25] VITALS: BP 150/82
--- NOTE | 2018-12-28 10:56 | IPNPDOC ---
Text Note Date of Service The patient was seen on 12/28/18. NOTE Patient was seen and examined this morning. No overnight events Physical examination GENERAL: Patient is awake, alert, oriented times three, answering questions appropriately. Anicteric sclerae. No jaundice. No use of respiratory accessory muscles. No conversation dyspnea. LUNGS: Diminished with faint expiratory wheezing. Right middle lobe crackles. Left upper lobe crackles. HEART: S1, S2. Sinus rhythm. ABDOMEN: Soft, nontender, nondistended. EXTREMITIES: No cyanosis, clubbing or any pitting edema. LABORATORY DATA: Imaging studies and microbiology have been reviewed. ASSESSMENT AND PLAN: A 63-year-old female presented with shortness of breath, actively smoking, presented with cough, shortness of breath, found to have bilateral pneumonia. Current issues: 1. Streptococcus pneumonia, community-acquired. Currently on ceftriaxone and doxycycline. Discontinue doxycycline if no other organisms are found in the final sputum culture results. Currently on supplemental oxygen. 2. Acute hypoxic respiratory failure secondary to pneumonia as well as chronic obstructive pulmonary disease (COPD). Keep saturations 88-92%. 3. Chronic obstructive pulmonary disease (COPD) exacerbation. Intravenous (IV) Solu-Medrol. de escalated to 40 3 times a day, nebulizer. Antibiotics for pneumonia and supplemental oxygen. 4. Enterovirus, rhinovirus viral infection. On isolation. 5. Hypertension. Resume losartan, metoprolol. 6. Bipolar disorder. Resume psychiatric medications. 7. Glaucoma. Resume the latanoprost. Disposition likely home in the next 24 hours VS,Braeden, I+O VS, Braeden, I+O Laboratory Tests 12/28/18 06:32 Vital Signs Date Time Temp Pulse Resp B/P (MAP) Pulse Ox O2 Delivery O2 Flow Rate FiO2 12/28/18 09:25 150/82 (104) 12/28/18 08:13 66 12/28/18 08:03 98.2 20 94 Room Air 12/27/18 16:13 1.0 I&O- Last 24 Hours up to 6 AM 12/28/18 06:00 Intake Total 1770 ml Output Total 1550 ml Balance 220 ml DEE QUAN MD Dec 28, 2018 10:56
[2018-12-28] MEDS ORDERED: LEVALBUTEROL 1.25 MG/0.5 ML CONCENTRATE NEB NEB PRN (12:45)
[2018-12-28] MEDS: cefTRIAXone SOD 2 GM in D5W MINI-BAG PLUS 50 ML IV SCH (12:50)
[2018-12-28] MEDS: HEPARIN SOD (PORCINE) 5000 UNITS/ML VIAL SQ SCH ×2 (13:30→22:32)
[2018-12-28 16:00] VITALS: BP 158/72
[2018-12-28] MEDS: LATANOPROST 0.005% OPHTH SOLN 2.5 ML OU SCH (22:33)
[2018-12-29] VITALS: BP 135/61
[2018-12-29] MEDS: DOXYCYCLINE HYCLATE 100 MG in D5W MINI-BAG PLUS 100 ML IV SCH (06:16)
[2018-12-29] MEDS: HEPARIN SOD (PORCINE) 5000 UNITS/ML VIAL SQ SCH ×3 (06:16→22:14)
[2018-12-29] MEDS: methylPREDNISolone INJ 40 MG/1 ML VIAL (J2920) IV SCH ×2 (06:16→15:31)
[2018-12-29 07:10] LABS: HEMATOCRIT 36.7 % (36.0-47.0); HEMOGLOBIN 11.5 g/dl (12.0-15.5); MEAN CORPUSCULAR HEMOGLOBIN 25.8 pg (27.0-33.0); MEAN CORPUSCULAR HGB CONC 31.3 g/dl (32.0-36.5); MEAN CORPUSCULAR VOLUME 82.3 fl (80.0-96.0); PLATELET COUNT, AUTOMATED 403 10^3/uL (150-450); RED BLOOD COUNT 4.46 10^6/uL (4.00-5.40); WHITE BLOOD COUNT 13.4 10^3/uL (4.0-10.0)
[2018-12-29 07:40] LABS: BLOOD UREA NITROGEN 26 MG/DL (7-18); CALCIUM LEVEL 8.7 MG/DL (8.8-10.2); CARBON DIOXIDE LEVEL 31 MEQ/L (21-32); CHLORIDE LEVEL 99 MEQ/L (98-107); CREATININE FOR GFR 0.91 MG/DL (0.55-1.30); GLOMERULAR FILTRATION RATE > 60.0 (>45); GLUCOSE, FASTING 172 MG/DL (70-100); POTASSIUM SERUM 4.4 MEQ/L (3.5-5.1); SODIUM LEVEL 135 MEQ/L (136-145)
[2018-12-29 08:00] VITALS: BP 162/94
[2018-12-29] MEDS: LEVALBUTEROL 1.25 MG/0.5 ML CONCENTRATE NEB NEB SCH ×3 (08:35→17:50)
[2018-12-29] MEDS: FUROSEMIDE 40 MG TAB PO SCH (08:47)
[2018-12-29] MEDS: LOSARTAN 50 MG TAB PO SCH (08:47)
[2018-12-29] MEDS: GABAPENTIN 400 MG CAP PO SCH ×3 (08:47→22:15)
[2018-12-29] MEDS: FLUoxetine 20 MG CAP PO SCH (08:48)
[2018-12-29] MEDS: METOPROLOL SUCC (TopROL XL) 100MG *XL* TAB PO SCH (08:48)
--- NOTE | 2018-12-29 11:48 | IPNPDOC ---
Text Note Date of Service The patient was seen on 12/29/18. NOTE Patient was seen and examined this morning. No overnight events Physical examination GENERAL: Patient is awake, alert, oriented times three, answering questions appropriately. Anicteric sclerae. No jaundice. No use of respiratory accessory muscles. No conversation dyspnea. LUNGS: Diminished with faint expiratory wheezing. Right middle lobe crackles. Left upper lobe crackles. HEART: S1, S2. Sinus rhythm. ABDOMEN: Soft, nontender, nondistended. EXTREMITIES: No cyanosis, clubbing or any pitting edema. LABORATORY DATA: Imaging studies and microbiology have been reviewed. ASSESSMENT AND PLAN: A 63-year-old female presented with shortness of breath, actively smoking, presented with cough, shortness of breath, found to have bilateral pneumonia. Current issues: 1. Streptococcus pneumonia, community-acquired. Currently on ceftriaxone and doxycycline. Currently on supplemental oxygen. 2. Acute hypoxic respiratory failure secondary to pneumonia as well as chronic obstructive pulmonary disease (COPD). Keep saturations 88-92%. 3. Chronic obstructive pulmonary disease (COPD) exacerbation. Tapering dose of steroids Antibiotics for pneumonia and supplemental oxygen. 4. Enterovirus, rhinovirus viral infection. On isolation. 5. Hypertension. Resume losartan, metoprolol. 6. Bipolar disorder. Resume psychiatric medications. 7. Glaucoma. Resume the latanoprost. Disposition likely home in the next 24 hours VS,Braeden, I+O VS, Braeden, I+O Laboratory Tests 12/29/18 06:43 Vital Signs Date Time Temp Pulse Resp B/P (MAP) Pulse Ox O2 Delivery O2 Flow Rate FiO2 12/29/18 08:47 162/94 12/29/18 08:00 97.7 70 20 93 Room Air 12/27/18 16:13 1.0 I&O- Last 24 Hours up to 6 AM 12/29/18 06:00 Intake Total 1610 ml Output Total 1450 ml Balance 160 ml DEE QUAN MD Dec 29, 2018 11:48
[2018-12-29] MEDS: cefTRIAXone SOD 2 GM in D5W MINI-BAG PLUS 50 ML IV SCH (12:00)
[2018-12-29 16:00] VITALS: BP 152/88
--- NOTE | 2018-12-29 17:40 | REP ---
PORTABLE CHEST: AP portable view of the chest is performed. Mild interstitial infiltrate is seen in the right upper lobe. Calcified granuloma is again seen in the right lung base. There may be some mild interstitial infiltrate in the right lung base. Left lung appears essentially clear. Heart is not significantly enlarged. Mediastinal silhouette is unremarkable. IMPRESSION: Diffuse interstitial infiltrate right lung. Electronically Signed by Jacinto Thomas MD 01/01/2019 10:05 A
[2018-12-29] MEDS: LATANOPROST 0.005% OPHTH SOLN 2.5 ML OU SCH (22:14)
[2018-12-29 23:49] VITALS: BP 151/70
[2018-12-30] MEDS: HEPARIN SOD (PORCINE) 5000 UNITS/ML VIAL SQ SCH (05:25)
[2018-12-30] MEDS ORDERED: LevoFLOXacin 500 MG TABLET PO SCH (06:00)
[2018-12-30 06:48] LABS: HEMATOCRIT 36.6 % (36.0-47.0); HEMOGLOBIN 11.4 g/dl (12.0-15.5); MEAN CORPUSCULAR HEMOGLOBIN 25.9 pg (27.0-33.0); MEAN CORPUSCULAR HGB CONC 31.1 g/dl (32.0-36.5); MEAN CORPUSCULAR VOLUME 83.2 fl (80.0-96.0); PLATELET COUNT, AUTOMATED 349 10^3/uL (150-450); WHITE BLOOD COUNT 10.3 10^3/uL (4.0-10.0)
[2018-12-30 07:05] LABS: CALCIUM LEVEL 8.6 MG/DL (8.8-10.2); CREATININE FOR GFR 0.99 MG/DL (0.55-1.30); GLOMERULAR FILTRATION RATE 59.9 (>45)
[2018-12-30] MEDS: LEVALBUTEROL 1.25 MG/0.5 ML CONCENTRATE NEB NEB SCH (07:33)
[2018-12-30 08:00] VITALS: BP 162/72
[2018-12-30 08:29] VITALS: BP 162/77
[2018-12-30] MEDS: LOSARTAN 50 MG TAB PO SCH (08:29)
[2018-12-30] MEDS: FUROSEMIDE 40 MG TAB PO SCH (08:29)
[2018-12-30] MEDS: GABAPENTIN 400 MG CAP PO SCH (08:29)
[2018-12-30] MEDS: METOPROLOL SUCC (TopROL XL) 100MG *XL* TAB PO SCH (08:29)
[2018-12-30] MEDS: FLUoxetine 20 MG CAP PO SCH (08:29)
[2018-12-30] MEDS ORDERED: predniSONE 20 MG TAB PO SCH (09:00)
[2018-12-30] MEDS ORDERED: LEVA1TAB2 PO (12:04)
--- NOTE | 2018-12-30 12:09 | DS.PDOC ---
Discharge Summary General Date of Admission Dec 24, 2018 at 16:18 Date of Discharge 12/30/18 Discharge Summary Chief complaints Shortness of breath Cough Final diagnosis Streptococcus pneumonia COPD exacerbation History of present illness and Hospital course A 63-year-old female presented with shortness of breath, actively smoking, presented with cough, shortness of breath, found to have bilateral pneumonia. For herStreptococcus pneumonia, community-acquired. initially on ceftriaxone and doxycycline. Currently on supplemental oxygen at 2 l . Will be dced on levaquin for two more days For her Chronic obstructive pulmonary disease (COPD) exacerbation. Tapering dose of steroids completed Antibiotics for pneumonia and supplemental oxygen. She is medically optimized for DC Physical examination GENERAL: Patient is awake, alert, oriented times three, answering questions appropriately. Anicteric sclerae. No jaundice. No use of respiratory accessory muscles. No conversation dyspnea. LUNGS: Diminished with faint expiratory wheezing. No rhonchi, no rales HEART: S1, S2. Sinus rhythm. ABDOMEN: Soft, nontender, nondistended. EXTREMITIES: No cyanosis, clubbing or any pitting edema. Dictations. As per discharge reconciliation medication list Activity as tolerated Diet. 2 g sodium diet Follow-up appointments. PCP in 1 week, pulmonary in 1 week. Condition on discharge. Patient is medically optimized for discharge Discharge disposition: Home Total time spent on this discharge including coordination of care, review of chart documentation and actual contact is around 35 minutes Vital Signs/I&Os Vital Signs Date Time Temp Pulse Resp B/P (MAP) Pulse Ox O2 Delivery O2 Flow Rate FiO2 12/30/18 08:29 162/77 12/30/18 08:00 98.1 66 20 97 Room Air 12/27/18 16:13 1.0 I&O- Last 24 Hours up to 6 AM 12/30/18 06:00 Intake Total 1380 ml Balance 1380 ml Laboratory Data Labs 24H Laboratory Tests 2 12/30/18 06:25: Nucleated Red Blood Cells % (auto) 0.3H, Anion Gap 6L, Glomerular Filtration Rate 59.9, Calcium Level 8.6L CBC/BMP Laboratory Tests 12/30/18 06:25 Microbiology Microbiology 12/24/18 Gram Stain - Final, Complete 12/24/18 Sputum Culture - Final, Complete Streptococcus Pneumoniae 12/24/18 Respiratory Virus Panel (PCR) (CONTRERAS) - Final, Complete Human Rhinovirus/Enterovirus Discharge Medications Scheduled Fluoxetine Hcl (Fluoxetine HCl) 20 Mg Capsule, 20 MG PO DAILY, (Reported) Fluphenazine HCl (Fluphenazine HCl) 5 Mg Tablet, 5 MG PO BID, (Reported) Furosemide (Furosemide) 40 Mg Tab, 40 MG PO DAILY, (Reported) Gabapentin (Gabapentin) 800 Mg Tab, 800 MG PO TID, (Reported) Latanoprost/Pf (Latanoprost 0.005% Eye Drop) 7.5 Ml Drops, 1 DROP OU QHS, (Reported) Levofloxacin (Levaquin) 500 Mg Tablet, 500 MG PO DAILY@06 Losartan Potassium (Losartan Potassium) 100 Mg Tablet, 100 MG PO DAILY, (Reported) Metoprolol Succinate (Metoprolol Succinate) 100 Mg Tab.er.24h, 100 MG PO DAILY, (Reported) RAN OUT NEVER GOT A REFILL FROM PHARMACY Scheduled PRN Albuterol Sulfate (Ventolin Hfa) 18 Gm Hfa.aer.ad, 2 PUFF INH Q4H PRN for wheezing, (Reported) Allergies Coded Allergies: aripiprazole (Verified Allergy, Unknown, 12/24/18) carbamazepine (Verified Allergy, Unknown, 12/24/18) chlorpromazine (Verified Allergy, Unknown, 12/24/18) clonazepam (Verified Allergy, Unknown, 12/24/18) lithium (Verified Allergy, Unknown, 12/24/18) olanzapine (Verified Allergy, Unknown, 12/24/18) quetiapine (Verified Allergy, Unknown, 12/24/18) DEE QUAN MD Dec 30, 2018 12:09
== END 2018-12-30 12:40 | disposition home or self-care (01) | DRG 139 ==
LOC: M ED 11:39 → M ED INP 16:18 → M MSPAV 12-25 15:01 → M PED 12-26 15:55
PROVIDERS: ADMIT General Practice; ATTEND Internal Medicine
DX: J13 Pneumonia due to Streptococcus pneumoniae (principal); J84.10 Pulmonary fibrosis, unspecified; J44.1 Chronic obstructive pulmonary disease with (acute) exacerbation; F25.9 Schizoaffective disorder, unspecified; I10 Essential (primary) hypertension; F31.9 Bipolar disorder, unspecified; H40.9 Unspecified glaucoma; Z88.8 Allergy status to other drugs, medicaments and biological substances; Z79.899 Other long term (current) drug therapy; F17.210 Nicotine dependence, cigarettes, uncomplicated; J44.0 Chronic obstructive pulmonary disease with (acute) lower respiratory infection; J96.01 Acute respiratory failure with hypoxia

== ENCOUNTER → 2019-03-25 | Outpatient (REF) | payer OTHER, MEDICAID ==
[~2019-03-25] MED LIST changes: +FLUO10CA15 PO; -FLUO10CA8 PO; +FLUO20CA19 PO; +LATA0.0015 OU; +LEVA1TAB2 PO; +LOSA100T50 PO; +METO1TAB33 PO; +VENTAER INH
[2019-03-25 18:20] LABS: ALBUMIN 3.5 GM/DL (3.2-5.2); BILIRUBIN,TOTAL 0.2 MG/DL (0.2-1.0); CALCIUM LEVEL 8.7 MG/DL (8.8-10.2); CREATININE FOR GFR 1.07 MG/DL (0.55-1.30); GLOMERULAR FILTRATION RATE 54.8 (>45); POTASSIUM SERUM 4.8 MEQ/L (3.5-5.1); TOTAL PROTEIN 6.9 GM/DL (6.4-8.2)
== END ==
LOC: M LAB REF 17:01
PROVIDERS: ATTEND Nurse Practitioner Adult Health
DX: R73.03 Prediabetes (principal)

== ENCOUNTER → 2019-06-22 | Outpatient (REF) | payer OTHER, MEDICAID ==
[~2019-06-22] MED LIST changes: -FLUO20CA19 PO; +FLUO20CA22 PO
[2019-06-22 16:47] LABS: ALBUMIN 3.7 GM/DL (3.2-5.2); BILIRUBIN,TOTAL 0.5 MG/DL (0.2-1.0); CALCIUM LEVEL 8.9 MG/DL (8.8-10.2); CREATININE FOR GFR 1.13 MG/DL (0.55-1.30); GLOMERULAR FILTRATION RATE 51.3 (>45); POTASSIUM SERUM 4.1 MEQ/L (3.5-5.1); TOTAL PROTEIN 7.3 GM/DL (6.4-8.2)
[2019-06-22 17:04] LABS: HEMOGLOBIN A1c 6.7 %
== END ==
LOC: M LAB REF 16:16
PROVIDERS: ATTEND Nurse Practitioner Adult Health
DX: R73.03 Prediabetes (principal); I10 Essential (primary) hypertension

== ENCOUNTER → 2019-10-12 | Outpatient (REF) | payer OTHER, MEDICAID ==
[~2019-10-12] MED LIST changes: -FLUO10CA15 PO; +FLUO10CA16 PO; +FLUP2.5T12 PO; -FLUP25TA PO
[2019-11-26 12:15] LABS: ALBUMIN 3.7 GM/DL (3.2-5.2); BILIRUBIN,TOTAL 0.2 MG/DL (0.2-1.0); CALCIUM LEVEL 8.5 MG/DL (8.8-10.2); CHOLESTEROL RISK RATIO 4.666 (<5); CREATININE FOR GFR 1.37 MG/DL (0.55-1.30); GLOMERULAR FILTRATION RATE 41.1 (>45); HEMOGLOBIN A1c 6.1 %; MALB URINE SIEMENS 14.5 MG/L; TOTAL PROTEIN 6.9 GM/DL (6.4-8.2)
== END ==
LOC: M LAB REF 11:40
PROVIDERS: ATTEND Nurse Practitioner Adult Health
DX: E11.9 Type 2 diabetes mellitus without complications (principal); I10 Essential (primary) hypertension

== ENCOUNTER → 2020-01-27 | Outpatient (REF) | payer OTHER, MEDICAID | LOC: M LAB REF 14:12 | PROVIDERS: ATTEND Physician Assistant | DX: R34 Anuria and oliguria (principal) ==

== ENCOUNTER 2020-03-12 17:14 | Emergency (ER) | payer OTHER ==
[~2020-03-12] VITALS: Ht 162.6 cm; Wt 73.7 kg
[~2020-03-12 17:14] MED LIST changes: -FLUP5TA PO; +FLUP5TAB13 PO
[2020-03-12 18:08] LABS: HEMATOCRIT 44.9 % (36.0-47.0); HEMOGLOBIN 14.4 g/dl (12.0-15.5); MEAN CORPUSCULAR HEMOGLOBIN 29.3 pg (27.0-33.0); MEAN CORPUSCULAR HGB CONC 32.1 g/dl (32.0-36.5); MEAN CORPUSCULAR VOLUME 91.3 fl (80.0-96.0); PLATELET COUNT, AUTOMATED 355 10^3/uL (150-450); RED BLOOD COUNT 4.92 10^6/uL (4.00-5.40); WHITE BLOOD COUNT 14.3 10^3/uL (4.0-10.0)
[2020-03-12] MEDS ORDERED: LORazepam 2 MG/ML VIAL IM ONE (18:15)
[2020-03-12] MEDS ORDERED: HALOPERIDOL 5MG/ML VIAL (J1630 PER 1) IM ONE (18:15)
[2020-03-12] MEDS ORDERED: NS 500 ML IV ONE (18:15)
[2020-03-12 18:47] LABS: ACETAMINOPHEN LEVEL < 2.0 UG/ML (10.0-30.0); ALBUMIN 3.8 GM/DL (3.2-5.2); ALT/SGPT 44 U/L (12-78); BILIRUBIN,DIRECT 0.1 MG/DL (0.0-0.2); BILIRUBIN,TOTAL 0.6 MG/DL (0.2-1.0); BLOOD UREA NITROGEN 26 MG/DL (7-18); CARBON DIOXIDE LEVEL 30 MEQ/L (21-32); CHLORIDE LEVEL 95 MEQ/L (98-107); CREATININE FOR GFR 1.21 MG/DL (0.55-1.30); ETHYL ALCOHOL (ETHANOL) < 0.003 % (0.000-0.010); GLOMERULAR FILTRATION RATE 47.4 (>45); GLUCOSE, FASTING 150 MG/DL (70-100); POTASSIUM SERUM 4.4 MEQ/L (3.5-5.1); SALICYLATE LEVEL < 1.7 MG/DL (5.0-30.0); SODIUM LEVEL 135 MEQ/L (136-145); THYROID STIMULATING HORMONE 0.299 uIU/ML (0.358-3.740); TOTAL PROTEIN 7.5 GM/DL (6.4-8.2)
[2020-03-12] MEDS ORDERED: LORazepam 2 MG/ML VIAL IV STA (19:32)
--- NOTE | 2020-03-12 20:30 | REPVR ---
PROCEDURE INFORMATION: Exam: CT Head Without Contrast Exam date and time: 03/12/2020 7:52 PM Age: 64 years old Clinical indication: Altered mental status/memory loss TECHNIQUE: Imaging protocol: Computed tomography of the head without contrast. Radiation optimization: All CT scans at this facility use at least one of these dose optimization techniques: automated exposure control; mA and/or kV adjustment per patient size (includes targeted exams where dose is matched to clinical indication); or iterative reconstruction. COMPARISON: No relevant prior studies available. FINDINGS: Brain: Scattered nonspecific hypodensities of the periventricular and deep subcortical white matter, most likely secondary to chronic small vessel ischemic change. No intracranial hemorrhage or extra-axial fluid collection. No evidence of mass effect or midline shift. Thomas-white matter differentiation is normal. Cerebral ventricles: Mild prominence of the ventricles and sulci, most likely attributed to parenchymal volume loss. Bones/joints: No acute osseus lesion or fracture. Paranasal sinuses: Visualized sinuses are unremarkable. No fluid levels. Mastoid air cells: Unremarkable. Soft tissues: Unremarkable. IMPRESSION: 1. No acute intracranial pathology. 2. Other chronic findings, as above. Electronically signed by: Nhan Martin On 03/12/2020 20:31:03 PM
[2020-03-12 20:55] LABS: AMPHETAMINES LEVEL URINE NEGATIVE (NEGATIVE); BARBITURATES URINE NEGATIVE (NEGATIVE); BENZODIAZEPINES URINE NEGATIVE (NEGATIVE); CANNABINOIDS URINE NEGATIVE (NEGATIVE); COCAINE METABOLITE URINE NEGATIVE (NEGATIVE); METHADONE URINE NEGATIVE (NEGATIVE); OPIATES URINE NEGATIVE (NEGATIVE); PHENCYCLIDINE URINE NEGATIVE (NEGATIVE)
[2020-03-12] MEDS ORDERED: NS 1,000 ML IV ONE (21:30)
[2020-03-13 00:10] LABS: FREE T4 1.85 NG/DL (0.76-1.46)
--- NOTE | 2020-03-13 06:33 | ECGEPIP ---
[facility] - ED Test Date: 2020-03-12 Pat Name: JONATHAN ROBLES Department: Room: - Gender: Female Respiratory Tech: JAKE : 1955 Requested By: MARIO Porter Order Number: [id number] Reading MD: Justice Ramirez Measurements Intervals [place] Rate: 122 P: 96 UT: 176 QRS: -70 QRSD: 98 T: 64 QT: 345 QTc: 492 Interpretive Statements SINUS TACHYCARDIA LEFT ANTERIOR FASCICULAR BLOCK LAD NONSPECIFIC ST T WAVE CHANGES DELAYED R WAVE PROGRESSION PROLONGED QTC CW 12/24/[address] T WAVE CHANGES Electronically Signed on 03-13-2020 6:33:42 EST by Justice Ramirez
[2020-03-13] MEDS ORDERED: XALA0.007 OU (07:30)
[2020-03-13] MEDS ORDERED: METF-839 PO (07:30)
[2020-03-13] MEDS ORDERED: metFORMIN (GLUCOPHAGE) 500 MG TAB PO ONE (09:15)
[2020-03-13] MEDS ORDERED: LOSARTAN 50MG TABLET PO ONE (09:15)
[2020-03-13] MEDS ORDERED: GABAPENTIN 400 MG CAP PO ONE (09:15)
[2020-03-13] MEDS ORDERED: METOPROLOL SUCC (TopROL XL) 100MG *XL* TAB PO ONE (09:15)
[2020-03-13] MEDS ORDERED: FUROSEMIDE 40 MG TAB PO ONE (09:15)
[2020-03-13 09:40] VITALS: BP 135/63
[2020-03-13 11:12] LABS: RSV AMPLIFICATION NEGATIVE (NEGATIVE)
[2020-03-13] MEDS ORDERED: ACETAMINOPHEN TAB 650MG DOSE (2X325MG) PO ONE (20:30)
[2020-03-13] MEDS: fluPHENAZine 5MG TABLET PO SCH (20:56)
[2020-03-14] MEDS: fluPHENAZine 5MG TABLET PO SCH (11:10)
[2020-03-14 18:44] VITALS: BP 158/68
== END 2020-03-14 18:47 ==
LOC: M ED 17:14
DX: F25.9 Schizoaffective disorder, unspecified (principal); F29 Unspecified psychosis not due to a substance or known physiological condition; R00.0 Tachycardia, unspecified; I44.4 Left anterior fascicular block; I10 Essential (primary) hypertension; H40.9 Unspecified glaucoma; F17.200 Nicotine dependence, unspecified, uncomplicated; Z79.899 Other long term (current) drug therapy; Z88.8 Allergy status to other drugs, medicaments and biological substances
CPT/HCPCS: 51701; 70450; 80048; 80076; 80307; 81001; 84439; 84443; 85027; 87631; 93005; 93041; 94760; 99285; G0480; J1630; J2060

== ENCOUNTER → 2020-06-25 | Outpatient (REF) | payer OTHER, MEDICAID ==
[~2020-06-25] MED LIST changes: +METF-839 PO; +XALA0.007 OU
== END ==
LOC: M LAB REF 16:33
PROVIDERS: ATTEND Pediatrics
DX: R30.9 Painful micturition, unspecified (principal)